=== PATIENT | male | born 1955 | race Caucasian/White ===

== ENCOUNTER 2021-06-29 08:06 | Emergency (ER) | payer OTHER, MEDICARE ==
[2021-06-29 08:46] LABS: BASOPHIL 0.7 % (0-2); EOSINOPHIL 2.4 % (0-7); HCT 42.7 % (42.0-52.0); HGB 14.1 g/dl (13.2-18.0); LYMPHOCYTE 23.8 % (15-48); MCH 31.4 pg (25.0-31.0); MCV 95.1 fL (78.0-100.0); MONOCYTE 13.4 % (0-12); MPV 8.8 fL (6.0-9.5); NEUTROPHIL 59.4 % (41-80); NRBC 0; PLT 316 K/uL (150-400); RBC 4.49 M/uL (4.70-6.00); RDW 12.3 % (11.5-14.0); WBC 6.1 K/uL (4.0-10.5)
[2021-06-29 08:53] LABS: INR 1.01 (0.9-1.2); PROTHROMBIN TIME 12.7 SECONDS (11.8-13.4)
[2021-06-29 08:56] LABS: ALBUMIN 3.4 g/dL (3.4-5.0); BILIRUBIN - TOTAL 0.5 mg/dL (0.2-1.0); BUN/CREAT RATIO (CALC) 32.4 RATIO; CREATININE 0.71 mg/dL (0.67-1.17); GLOBULIN (CALCULATION) 3.2 g/dL; POTASSIUM 4.1 mmol/L (3.5-5.1); TOTAL PROTEIN 6.6 g/dL (6.4-8.2)
== END 2021-06-29 09:39 | disposition other institution (70) ==
LOC: FER 08:06
PROVIDERS: Internal Medicine
DX: S06.6X0A Traumatic subarachnoid hemorrhage without loss of consciousness, initial encounter (principal); S61.301A Unspecified open wound of left index finger with damage to nail, initial encounter; S30.1XXA Contusion of abdominal wall, initial encounter; S50.11XA Contusion of right forearm, initial encounter; S00.81XA Abrasion of other part of head, initial encounter; I25.10 Atherosclerotic heart disease of native coronary artery without angina pectoris; I10 Essential (primary) hypertension; V20.4XXA Motorcycle driver injured in collision with pedestrian or animal in traffic accident, initial encounter; Y92.410 Unspecified street and highway as the place of occurrence of the external cause
CPT/HCPCS: 36415; 70450; 71260; 72125; 80053; 85025; 85610; 85730; J3490